=== PATIENT | male | born 1995 | race Caucasian/White ===

== ENCOUNTER 2020-11-18 22:15 | Observation (INO) | payer OTHER, SELFPAY ==
[~2020-11-18 22:15] MED LIST: Iopamidol 370 76% 100 ML VIAL ONE
[2020-11-18 22:46] LABS: Hemoglobin 16.4 g/dL (14.0-18.0); Mean Corpuscular HGB CONC 34.2 g/dL (32.0-36.0); Mean Corpuscular Hemoglobin 32.4 pg (27.0-31.0); Mean Corpuscular Volume 94.8 fL (78.0-98.0); Mean Platelet Volume 8.3 fL (7.4-10.4); Platelet Count 334 thou/uL (130-400); RBC Distribution Width 11.8 % (11.5-14.5); Red Blood Cell (RBC) Count 5.07 mill/uL (4.70-6.10); White Blood Cell (WBC) Count 24.1 thou/uL (4.8-10.8)
[2020-11-18 22:51] LABS: Bacteria/HPF None Seen HPF (None Seen); Bilirubin Negative (Negative); Blood, Urine 3+ (Negative); Clarity Clear (Clear); Glucose, Urine (Dipstick) Normal (Negative); Ketone, Urine 20 mg/dL (Negative); Leukocyte Negative Leu/uL (Negative); Mucous/LPF Rare LPF (<2+); Nitrite Negative (Negative); Protein, Urine (Dipstick) 10 mg/dL (Neg-Trace); RBC/HPF Greater than 50 HPF (0-3); Specific Gravity, Urine 1.021 (1.002-1.036); Squamous Epithelial None Seen HPF (0-3); Urobilinogen Normal mg/dL (Less than 2); WBC/HPF 0-3 HPF (0-3)
[2020-11-18 23:03] LABS: Band 7 % (5-11); Lymphocytes 15 % (21-51); MDiff Complete? YES; Monocytes 9 % (0-10); Neutrophil 69 % (42-75); Platelet Morphology Comment Appears Adequate; RBC Morphology Normal
[2020-11-18 23:06] LABS: ALT (SGPT) 62 U/L (8-55); AST (SGOT) 31 U/L (5-34); Albumin 4.6 g/dL (3.5-5.0); Alkaline Phosphatase 58 U/L (40-110); Anion Gap 20 mmol/L (10-20); BUN (Urea Nitrogen) 8 mg/dL (8.9-20.6); Bilirubin, Total 0.4 mg/dL (0.2-1.2); Calc. Creatinine Clearance 0 mL/min (70-130); Calcium 9.7 mg/dL (7.8-10.44); Carbon Dioxide 23 mmol/L (22-29); Chloride 102 mmol/L (98-107); Globulin 3.2 g/dL (2.4-3.5); Glucose 136 mg/dL (70-105); Potassium 4.1 mmol/L (3.5-5.1); Protein, Total 7.8 g/dL (6.0-8.3); Sodium 141 mmol/L (136-145)
[2020-11-18] MEDS ORDERED: Morphine 4 MG/ML VIAL ONE (23:19)
[2020-11-18] MEDS ORDERED: Ondansetron PF 4 MG/2 ML Vial ONE (23:19)
--- NOTE | 2020-11-19 00:01 | CT ---
CT abdomen and pelvis: 11/18/2020 COMPARISON: None HISTORY: Right flank pain TECHNIQUE: Axial CT imaging at 5 mm intervals from lung bases through pubic symphysis with IV contras t. Coronal and sagittal reformatted imaging obtained. FINDINGS: The visualized lung bases are unremarkable. No free intraperitoneal air or fluid. The liver, gallbladder, spleen, pancreas, adrenal glands, and left kidney appear unremarkable. There is a slightly delayed right nephrogram with mild right hydronephrosis and right hydroureter to the axial level of the pelvic inlet where there is a obstructing stone within the right ureter at the axi al level of the mid sacrum (axial image 73) measuring approximately 2-3 mm. Limited assessment of the bowel demonstrates no evidence for inflammatory change or obstruction. The appendix appears unremarkable. The vascular structures of the abdomen/pelvis appear patent. No abdominal or pelvic lymphadenopathy. No acute osseous abnormality. IMPRESSION: Obstructive uropathy on the right secondary to a 2-3 mm obstructing stone within the righ t ureter as detailed above.
[2020-11-19] MEDS ORDERED: Ketorolac Tromethamine 30 MG/ML VIAL ONE (00:20)
[2020-11-19 02:16] LABS: #Basophils 0.1 thou/uL (0.0-0.2); #Monocytes 0.8 thou/uL (0.11-0.59); #Neutrophils 19.6 thou/uL (1.40-6.50); %Basophils 0.3 % (0.0-1.0); %Eosinophils 0.1 % (0.0-10.0); %Lymphocytes 4.6 % (21.0-51.0); %Monocytes 3.9 % (0.0-10.0); %Neutrophils 91.2 % (42.0-75.0); Hemoglobin 14.7 g/dL (14.0-18.0); Mean Corpuscular HGB CONC 33.5 g/dL (32.0-36.0); Mean Corpuscular Hemoglobin 31.8 pg (27.0-31.0); Mean Corpuscular Volume 95.1 fL (78.0-98.0); Mean Platelet Volume 8.3 fL (7.4-10.4); Platelet Count 277 thou/uL (130-400); RBC Distribution Width 11.7 % (11.5-14.5); Red Blood Cell (RBC) Count 4.61 mill/uL (4.70-6.10); White Blood Cell (WBC) Count 21.5 thou/uL (4.8-10.8)
[2020-11-19] MEDS ORDERED: cefTRIAXone\\ROCEPHIN 2 GM VIAL ONE (02:37)
--- NOTE | 2020-11-19 03:31 | PDOC.HHP ---
Hospitalist HPI Right flank pain History of Present Illness: PCP: None The patient is a 25-year-old male with no significant past medical history that presents to the emergency department for the above complaint. The patient reports developing right flank pain that radiates to the right lower back and suprapubic region since yesterday. Describes the pain is intermittent, severe at times, described as sharp and stabbing, exacerbated relieved by nothing. Reports associated diarrhea. Denies any vomiting, hematochezia/melena. No recent travel or antibiotic usage. Denies dysuria and hematuria. Denies fever and chills. Denies any chest pain, heart palpitations or lightheadedness. Denies any shortness of breath, cough, hemoptysis or wheezing. ED Course: VITAL SIGNS TueNov 18, 2020 22:16 REGINA Sellers Julia BP: 144/88, Pulse: 65, Resp: 20, Temp: 97.5 (Oral), Pain: 9, O2 sat: 98 on (Room Air), Time: 11/18/2020 22:16. VITAL SIGNS TueNov 18, 2020 23:16 REGINA Mathis Melanie BP: 128/70, Pulse: 60, Resp: 23, Pain: 10, O2 sat: 96 on (Room Air), Time: 11/18/2020 23:16. VITAL SIGNS TueNov 19, 2020 00:27 Andrew Morton RN, [place], BP: 132/81, Pulse: 95, Resp: 16, Pain: 8, O2 sat: 96 on (Room Air), Time: 11/19/2020 00:27. VITAL SIGNS TueNov 19, 2020 01:05 Andrew Morton RN, [place], BP: 98/52, Resp: 16, Temp: 97.8 (Oral), O2 sat: 99 on (Room Air), Time: 11/19/2020 01:05. VITAL SIGNS TueNov 19, 2020 01:36 Andrew Morton RN, [place], BP: 101/43, Pulse: 120, Resp: 20, O2 sat: 99 on (Room Air), Time: 11/19/2020 01:36. VITAL SIGNS TueNov 19, 2020 02:15 Andrew Morton RN, [place], BP: 133/76, MAP: 95, Pulse: 112, O2 sat: 99 on (Room Air), Time: 11/19/2020 02:15. VITAL SIGNS TueNov 19, 2020 02:34 Andrew Morton RN, [facility], BP: 150/99, MAP: 116, Pulse: 107, Resp: 20, Temp: 98.0 (Oral), Pain: 0, O2 sat: 99 on (Room Air), Time: 11/19/2020 02:34 Medications: cefTRIAXone injection 2 g IV Piggy Back Given 02:43 11/19/2020 sodium chloride 0.9 % intravenous 1000 mL IV Fluid Infusion Given 01:52 11/19/2020 sodium chloride 0.9 % intravenous 1000 mL IV Fluid Infusion Given 00:26 11/19/19 21 ketorolac injection 15 mg IV Push Given 00:24 11/19/2020 ondansetron HCl intravenous 4 mg IV Push Given 23:32 11/18/2020 morphine injection 4 mg IV Push Given 23:31 11/18/2020 sodium chloride 0.9 % intravenous 1000 mL IV Fluid Infusion Given 23:31 11/18/2020 Allergies/Adverse Reactions: Allergy/AdvReac Type Severity Reaction Status Date / Time No Known Allergies Allergy Unverified 11/19/20 03:32 Home Medications: Medication Instructions Recorded Confirmed Type No Known 11/19/20 11/19/20 History Past History: PMHx: None PSHx: None FHx: Non contributory to this case. Social: No history tobacco, heavy alcohol or illicit drug usage, he is independent. Hospitalist HPI ROS All other systems reviewed; all pertinent +/- noted in HPI/Subj Hospitalist Exam General Appearance: NAD, awake alert. negative: ill appearing General - other findings: Appears uncomfortable Eye: anicteric sclera ENT: normocephalic atraumatic Heart: RRR, no murmur, no gallops, no rubs, normal peripheral pulses Respiratory: CTAB, no wheezes, no rales, no ronchi, normal chest expansion, no tachypnea Gastrointestinal: soft, non-distended, normal bowel sounds, no guarding, no rigidity Gastrointestinal - other findings: RCVAT Extremities: no cyanosis, no edema Skin: no rashes Neurological: no focal deficits Musculoskeletal: normal tone, normal strength Psychiatric: normal affect, A&O x 3 Hospitalist Results Result Diagrams: 11/19/20 01:57 11/18/20 22:37 Lab results: Laboratory Last Values WBC 21.5 thou/uL (4.8-10.8) H 11/19/20 01:57 RBC 4.61 mill/uL (4.70-6.10) L 11/19/20 01:57 Hgb 14.7 g/dL (14.0-18.0) 11/19/20 01:57 Hct 43.9 % (42.0-52.0) 11/19/20 01:57 MCV 95.1 fL (78.0-98.0) 11/19/20 01:57 MCH 31.8 pg (27.0-31.0) H 11/19/20 01:57 MCHC 33.5 g/dL (32.0-36.0) 11/19/20 01:57 RDW 11.7 % (11.5-14.5) 11/19/20 01:57 Plt Count 277 thou/uL (130-400) 11/19/20 01:57 MPV 8.3 fL (7.4-10.4) 11/19/20 01:57 Neutrophils % 91.2 % (42.0-75.0) H 11/19/20 01:57 Neutrophils % (Manual) 69 % (42-75) 11/18/20 22:37 Band Neuts % (Manual) 7 % (5-11) 11/18/20 22:37 Lymphocytes % 4.6 % (21.0-51.0) L 11/19/20 01:57 Lymphocytes % (Manual) 15 % (21-51) L 11/18/20 22:37 Monocytes % 3.9 % (0.0-10.0) 11/19/20 01:57 Monocytes % (Manual) 9 % (0-10) 11/18/20 22:37 Eosinophils % 0.1 % (0.0-10.0) 11/19/20 01:57 Basophils % 0.3 % (0.0-1.0) 11/19/20 01:57 Neutrophils # 19.6 thou/uL (1.40-6.50) H 11/19/20 01:57 Lymphocytes # 1.0 thou/uL (1.20-3.40) L 11/19/20 01:57 Monocytes # 0.8 thou/uL (0.11-0.59) H 11/19/20 01:57 Eosinophils # 0.0 thou/uL (0.0-0.7) 11/19/20 01:57 Basophils # 0.1 thou/uL (0.0-0.2) 11/19/20 01:57 Plt Morphology Comment Appears Adequate 11/18/20 22:37 RBC Morph Comment Normal 11/18/20 22:37 Sodium 141 mmol/L (136-145) 11/18/20 22:37 Potassium 4.1 mmol/L (3.5-5.1) 11/18/20 22:37 Chloride 102 mmol/L (98-107) 11/18/20 22:37 Carbon Dioxide 23 mmol/L (22-29) 11/18/20 22:37 Anion Gap 20 mmol/L (10-20) 11/18/20 22:37 BUN 8 mg/dL (8.9-20.6) L 11/18/20 22:37 Creatinine 1.08 mg/dL (0.7-1.3) 11/18/20 22:37 Estimated GFR (MDRD) 84 11/18/20 22:37 Glucose 136 mg/dL (70-105) H 11/18/20 22:37 Lactic Acid 1.5 mmol/L (0.5-2.2) 11/19/20 01:57 Calcium 9.7 mg/dL (7.8-10.44) 11/18/20 22:37 Total Bilirubin 0.4 mg/dL (0.2-1.2) 11/18/20 22:37 AST 31 U/L (5-34) 11/18/20 22:37 ALT 62 U/L (8-55) H 11/18/20 22:37 Alkaline Phosphatase 58 U/L (40-110) 11/18/20 22:37 Serum Total Protein 7.8 g/dL (6.0-8.3) 11/18/20 22:37 Albumin 4.6 g/dL (3.5-5.0) 11/18/20 22:37 Globulin 3.2 g/dL (2.4-3.5) 11/18/20 22:37 Albumin/Globulin Ratio 1.4 g/dL (1.2-2.2) 11/18/20 22:37 Lipase 10 U/L (8-78) 11/18/20 22:37 Urine Color Yellow (Yellow) 11/18/20 10:28 Urine Clarity Clear (Clear) 11/18/20 10:28 Urine pH 6.0 (5.0-9.0) 11/18/20 10:28 Ur Specific Grethel 1.021 (1.002-1.036) 11/18/20 10:28 Urine Protein 10 mg/dL (Neg-Trace) 11/18/20 10:28 Urine Glucose (UA) Normal mg/dL (Negative) 11/18/20 10:28 Urine Ketones 20 mg/dL (Negative) A 11/18/20 10:28 Urine Blood 3+ (Negative) A 11/18/20 10:28 Urine Nitrite Negative (Negative) 11/18/20 10:28 Urine Bilirubin Negative (Negative) 11/18/20 10:28 Urine Urobilinogen Normal mg/dL (Less than 2) 11/18/20 10:28 Ur Leukocyte Esterase Negative Alexi/uL (Negative) 11/18/20 10:28 Urine RBC Greater than 50 HPF (0-3) A 11/18/20 10:28 Urine WBC 0-3 HPF (0-3) 11/18/20 10:28 Ur Squamous Epith Cells None Seen HPF (0-3) 11/18/20 10:28 Urine Bacteria None Seen HPF (None Seen) 11/18/20 10:28 Urine Mucus Rare LPF (<2+) 11/18/20 10:28 CT scan - abdomen Status: report reviewed by me Additional Comments: there is a obstructing stone within the right ureter at the axial level of the mid sacrum (axial image 73) measuring approximately 2-3 mm. IMPRESSION: Obstructive uropathy on the right secondary to a 2-3 mm obstructing stone within the right ureter as detailed above. Hospitalist H&P A/P (1) Right ureteral calculus Code(s): N20.1 - CALCULUS OF URETER Status: Acute (2) Leukocytosis Code(s): D72.829 - ELEVATED WHITE BLOOD CELL COUNT, UNSPECIFIED Status: Acute (3) Hematuria Code(s): R31.9 - HEMATURIA, UNSPECIFIED Status: Acute Plan: Patient with no significant past medical history presents for right flank pain and diarrhea. Imaging revealed 2-3 mm obstructing, right ureteral stone without hydronephrosis. Labs showed leukocytosis, without pyuria. Lactic acid 1.5. Patient tachycardic after 3 L normal saline. #Right ureteral calculus Continue IV fluid, analgesia and antiemetics. Continue Rocephin. Blood cultures pending. Start Flomax. If no improvement in symptoms, consider urology consult. #Leukocytosis Presented WBCs 24.1. After 3L NS, WBCs 21.5 Mildly tachycardic, low 100s UA + blood/RBCs, no pyuria, LA 1.5. Continue Rocephin. Recheck levels in a.m. SCDs for DVT prophylaxis. Pepcid for GI prophylaxis. CODE STATUS is full code. Discussed the case with attending physician, Dr. Walker, who agrees with plan of care.
[2020-11-19] MEDS ORDERED: Acetaminophen 325 MG TAB PO PRN (03:37)
[2020-11-19] MEDS ORDERED: Ondansetron PF 4 MG/2 ML Vial IVP PRN (03:39)
[2020-11-19] MEDS ORDERED: Morphine 2 MG/ML VIAL SLOW IVP PRN ×2 (03:39→03:43)
[2020-11-19] MEDS ORDERED: Ondansetron ODT 4 MG TAB PO PRN (03:39)
[2020-11-19] MEDS ORDERED: Tamsulosin HCl 0.4 MG CAP PO SCH (04:00)
[2020-11-19] MEDS ORDERED: Morphine 4 MG/ML VIAL ONE (04:11)
[2020-11-19 05:44] VITALS: BMI 29.9
[2020-11-19] MEDS: Ketorolac Tromethamine 30 MG/ML VIAL IVP SCH ×4 (06:36→23:48)
[2020-11-19] MEDS: Sodium Chloride 0.9% 1,000 ML IV SCH ×3 (06:39→21:08)
[2020-11-19] MEDS: Famotidine 20 MG TAB PO SCH ×2 (08:07→21:13)
[2020-11-19] MEDS ORDERED: Loratadine 10 MG TAB PO PRN (09:03)
[2020-11-19] MEDS ORDERED: GUAIFENESIN SF SOLN 200 MG/10 ML UDCUP PO PRN (09:03)
[2020-11-19] MEDS ORDERED: Loperamide HCl 2 MG CAP PO PRN (09:03)
[2020-11-19] MEDS ORDERED: Senokot S 8.6-50 MG TAB PO PRN (09:03)
[2020-11-19] MEDS ORDERED: Sodium Chloride 0.65% Nasal 44 ML BOT EA NARE PRN (09:03)
[2020-11-19] MEDS ORDERED: Bisacodyl 5 MG TAB PO PRN (09:03)
[2020-11-19] MEDS ORDERED: Zolpidem Tartrate 5 MG TAB PO PRN (09:03)
[2020-11-19] MEDS ORDERED: Cepastat Lozenges 1 LOZ PO PRN (09:03)
[2020-11-19] MEDS ORDERED: hydrALAZINE 20 MG/ML VIAL SLOW IVP PRN (09:03)
[2020-11-19 12:25] LABS: SARS-CoV-2 PCR by NAA Not Detected (NotDetected)
--- NOTE | 2020-11-19 13:48 | PDOC.HOSPP ---
- Subjective Encounter Date: 11/19/20 Encounter Time: 10:15 Subjective: Patient seen and examined bedside today, no overnight event, patient still has right-sided flank pain, - Objective Vital Signs & Weight: Vital Signs (12 hours) Temp Pulse Resp BP Pulse Ox 11/19/20 09:00 98.0 F 77 16 113/58 L 96 11/19/20 05:05 98.8 F 98 10 L 126/79 98 Weight Weight 215 lb 1.6 oz I&O: 11/18/20 11/19/20 11/20/20 06:59 06:59 06:59 Intake Total 15 Output Total 375 Balance -360 Result Diagrams: 11/19/20 01:57 11/18/20 22:37 Radiology Reviewed by me: Yes EKG Reviewed by me: Yes Hospitalist ROS - Review of Systems ENT: denies: ear pain, ear discharge, nose pain, nose discharge, nose con gestion, mouth pain, mouth swelling, throat pain, throat swelling, other Respiratory: denies: cough, dry, shortness of breath, hemoptysis, SOB with excertion, pleuritic pain, sputum, wheezing, other Cardiovascular: denies: chest pain, palpitations, orthopnea, paroxysmal noc. dyspnea, edema, light headedness, other Gastrointestinal: denies: nausea, vomiting, abdominal pain, diarrhea, constipation, melena, hematochezia, other Genitourinary: denies: dysuria, frequency, incontinence, hematuria, retention, other Musculoskeletal: denies: neck pain, shoulder pain, arm pain, back pain, hand pain, leg pain, foot pain, other - Medication Medications: Active Medications Generic Name Dose Route Start Last Admin Trade Name Freq PRN Reason Stop Dose Admin Famotidine 20 mg 11/19/20 09:00 11/19/20 08:07 Famotidine 20 Mg Tab PO 20 mg BID VIRAJ Administration Sodium Chloride 1,000 mls @ 120 mls/hr 11/19/20 03:45 11/19/20 11:53 Normal Saline 0.9% IV 1,000 mls .[id number] VIRAJ Administration Ketorolac Tromethamine 15 mg 11/19/20 06:00 11/19/20 11:53 Ketorolac Tromethamine 30 Mg/Ml Vial IVP 11/24/20 06:01 15 mg Q6HR VIRAJ Administration Hospitalist Exam Vitals: Vital Signs (12 hours) Temp Pulse Resp BP Pulse Ox 11/19/20 09:00 98.0 F 77 16 113/58 L 96 11/19/20 05:05 98.8 F 98 10 L 126/79 98 Weight Weight 215 lb 1.6 oz General Appearance: NAD, awake alert Eye: PERRL, anicteric sclera ENT: normocephalic atraumatic, no oropharyngeal lesions Neck: supple, symmetric, no JVD, no thyromegaly Heart: RRR, no murmur, no gallops, no rubs Respiratory: CTAB, no wheezes, no rales, no ronchi Gastrointestinal: soft, non-tender, non-distended, normal bowel sounds Gastrointestinal - other findings: Right-sided flank pain noted Extremities: no cyanosis, no clubbing, no edema Skin: normal turgor, no lesions Neurological: no focal deficits Musculoskeletal: normal tone, normal strength Psychiatric: normal affect, normal behavior Hosp A/P (1) Obesity (BMI 30.0-34.9) Code(s): E66.9 - OBESITY, UNSPECIFIED Status: Acute (2) Obstructive uropathy Code(s): N13.9 - OBSTRUCTIVE AND REFLUX UROPATHY, UNSPECIFIED Status: Acute (3) Hematuria Code(s): R31.9 - HEMATURIA, UNSPECIFIED Status: Acute (4) Leukocytosis Code(s): D72.829 - ELEVATED WHITE BLOOD CELL COUNT, UNSPECIFIED Status: Acute (5) Right ureteral calculus Code(s): N20.1 - CALCULUS OF URETER Status: Acute - Plan old records reviewed/req, continue antibiotics Continue IV fluid If urology not planning to do any intervention then will start diet Discontinue telemetry Transfer to medical We will repeat labs tomorrow We will monitor 24 hours Pain control
[2020-11-19] MEDS: HYDROcodone/Acetaminophen 5/325 mg Tablet PO PRN ×2 (16:41→21:14)
[2020-11-19] MEDS ORDERED: FLU VACC QS2020-21(6MOS UP)/PF 60 MCG/0.5 ML SYRINGE IM ONE (21:00)
--- NOTE | 2020-11-19 22:41 | CON ---
DATE OF CONSULTATION: REQUESTING PHYSICIAN: Uday Walker MD REASON FOR CONSULTATION: Right ureteral stone. HISTORY OF PRESENT ILLNESS: Mr. Gill is a 25-year-old male with no past urologic history, who presented to the emergency department with a 2-day history of left-sided flank pain associated with nausea and radiating to his right lower quadrant. The patient had a CT scan of the abdomen and pelvis performed, which demonstrated a 2-3 mm calculus within the right distal ureter and mild right hydroureteronephrosis. The patient was found to have a leukocytosis of 24 and he was tachycardic. His urine was consistent with a stone with red blood cells bacteria. Cultures were performed and the patient was admitted. Urology was consulted for further evaluation. Currently, the patient's pain is 0/10. He states that it will get up to 1-2/10 and has responded very well to Toradol. He denies any nausea and no fever. He has never had stones before. He is not diabetic. He has no new complaints. REVIEW OF SYSTEMS: Full 12-point review of systems was performed and negative other than that mentioned in HPI. PAST MEDICAL HISTORY: None. PAST SURGICAL HISTORY: None. FAMILY HISTORY: Noncontributory. SOCIAL HISTORY: No alcohol, tobacco, or illicit drugs. PHYSICAL EXAMINATION: VITAL SIGNS: Temperature is 98, blood pressure 128/70, pulse 60, oxygen saturation 98% on room air. GENERAL: He is awake and alert, in no apparent distress. HEENT: Normocephalic, atraumatic. NECK: Supple. No masses or lymphadenopathy. CARDIOVASCULAR: Regular rate and rhythm. PULMONARY: Breathing unlabored. ABDOMEN: Soft, nontender/nondistended. No masses or organomegaly. No suprapubic tenderness to palpation. No CVA tenderness. EXTREMITIES: Warm, well perfused. No edema. NEUROLOGIC: No focal deficits. RADIOLOGY DATA: CT of the abdomen and pelvis as stated above. These films were reviewed and agreed with radiologist's interpretation. LABORATORY DATA: White blood cell count 21.5 down from 24.1, hemoglobin 14.7, hematocrit 43.9, platelets 277. Sodium 141, potassium 4.1, chloride 102, bicarb 23, BUN 8, creatinine 1.08. Urine; 3+ blood, greater than 50 red blood cells per high-power field, 0-3 white blood cells per high-power field, no bacteria seen, nitrite negative. ASSESSMENT: 25-year-old male with a 2 to 3 mm minimally obstructing right ureteral calculus. PLAN: I reviewed the natural history and clinical implications of ureteral lithiasis with the patient in detail and discussed his approximate 90% to 95% chance of spontaneous passage of a stone this size. The patient is no longer tachycardic. His white blood cell count is trending down. He has very minimal pain at this time. He is not requiring a large amount of narcotics. He has no nausea and is afebrile. I discussed options with the patient. Recommended trial of passage. He agrees to this. From the urologic standpoint, he can be discharged home when otherwise cleared medically. He can follow up with Urology in 2 weeks. He should be discharged home with pain medication. He has responded well to Toradol and oral Toradol should be considered. He also should leave with the Flomax as well as antiemetics. Job ID: [id number]
[2020-11-20] MEDS ORDERED: cefTRIAXone\\ROCEPHIN 1 GM in Sodium Chloride 0.9% 100 ML IVPB SCH (02:30)
[2020-11-20] MEDS: Ketorolac Tromethamine 30 MG/ML VIAL IVP SCH ×2 (05:34→15:16)
[2020-11-20] MEDS: Sodium Chloride 0.9% 1,000 ML IV SCH ×2 (05:34→15:16)
[2020-11-20 06:19] LABS: #Basophils 0.1 thou/uL (0.0-0.2); #Eosinphils 0.3 thou/uL (0.0-0.7); #Lymphocytes 3.8 thou/uL (1.20-3.40); #Monocytes 0.8 thou/uL (0.11-0.59); #Neutrophils 4.5 thou/uL (1.40-6.50); %Basophils 1.1 % (0.0-1.0); %Eosinophils 2.7 % (0.0-10.0); %Lymphocytes 40.3 % (21.0-51.0); %Monocytes 8.2 % (0.0-10.0); %Neutrophils 47.8 % (42.0-75.0); Hemoglobin 13.1 g/dL (14.0-18.0); Mean Corpuscular Hemoglobin 31.7 pg (27.0-31.0); Mean Platelet Volume 8.3 fL (7.4-10.4); Platelet Count 243 thou/uL (130-400); RBC Distribution Width 11.8 % (11.5-14.5); Red Blood Cell (RBC) Count 4.14 mill/uL (4.70-6.10); White Blood Cell (WBC) Count 9.5 thou/uL (4.8-10.8)
[2020-11-20 06:37] LABS: Anion Gap 12 mmol/L (10-20); BUN (Urea Nitrogen) 9 mg/dL (8.9-20.6); Calc. Creatinine Clearance 181 mL/min (70-130); Calcium 8.2 mg/dL (7.8-10.44); Carbon Dioxide 26 mmol/L (22-29); Chloride 108 mmol/L (98-107); Glucose 87 mg/dL (70-105); Potassium 3.9 mmol/L (3.5-5.1); Sodium 142 mmol/L (136-145)
[2020-11-20] MEDS: Famotidine 20 MG TAB PO SCH (08:06)
[2020-11-20] MEDS ORDERED: Tamsulosin HCl 0.4 MG CAP PO SCH (09:00)
[2020-11-20] MEDS: HYDROcodone/Acetaminophen 5/325 mg Tablet PO PRN (09:18)
--- NOTE | 2020-11-20 10:56 | PDOC.DS.DS ---
Provider Date of Admission: 11/19/20 05:15 Date of Discharge: 11/20/20 Admitting Provider: Uday Walker MD Consultations: Urology Primary Care Physician: NO PCP PROVIDER Course Hospital Course: The patient is a 25-year-old male with no significant past medical history that presents to the emergency department for the above complaint. The patient reports developing right flank pain that radiates to the right lower back and suprapubic region since yesterday. Describes the pain is intermittent, severe at times, described as sharp and stabbing, exacerbated relieved by nothing. Reports associated diarrhea. Denies any vomiting, hematochezia/melena. No recent travel or antibiotic usage. Denies dysuria and hematuria. Denies fever and chills. Denies any chest pain, heart palpitations or lightheadedness. Denies any shortness of breath, cough, hemoptysis or wheezing. Patient had leukocytosis and flank pain and patient had 3 to 4 mm ureteral stone with mild hydronephrosis, patient was having obstructive uropathy, he did not have any fever, we kept in hospital, we hydrate him with IV fluid, we control his pain with the pain medication, his pain was appropriately controlled, next day his leukocytosis resolved, his hematuria also cleared, urology evaluated this patient and recommended conservative therapy at this point, we have prescribed Toradol and Flomax and encouraged about oral hydration, patient will follow up with urology in 2 weeks, In the hospital he remained hemodynamic stable, he is comfortable to go home, urology cleared him for discharge as well. Patient seen and examined bedside today, all new medication prescription sent to his pharmacy Resuscitation Status: 11/19/20 03:37 Resuscitation Status Routine Co-Sign Provider: Resuscitation Status: FULL: Full Resuscitation Discussed with: patient Lab Results: 11/20/20 06:02 11/20/20 06:02 Abnormal Lab Results - Last 48 hrs 11/18/20 10:28: Urine Ketones 20 A, Urine Blood 3+ A, Urine RBC Greater than 50 A 11/18/20 22:37: WBC 24.1 H, MCH 32.4 H, Lymphocytes % (Manual) 15 L 11/18/20 22:37: BUN 8 L, ALT 62 H 11/19/20 01:57: WBC 21.5 H, RBC 4.61 L, MCH 31.8 H, Neutrophils % 91.2 H, Lymphocytes % 4.6 L, Neutrophils # 19.6 H, Lymphocytes # 1.0 L, Monocytes # 0.8 H 11/20/20 06:02: Chloride 108 H 11/20/20 06:02: RBC 4.14 L, Hgb 13.1 L, Hct 39.8 L, MCH 31.7 H, Basophils % 1.1 H, Lymphocytes # 3.8 H, Monocytes # 0.8 H Vitals: Vital Signs (12 hours) Temp Pulse Resp BP BP Pulse Ox 11/20/20 07:53 98.2 F 66 20 126/84 91 L 11/20/20 05:01 97.6 F 61 20 137/86 95 11/20/20 00:55 97.7 F 84 20 126/84 94 L Weight Weight 215 lb Physical Exam: The patient was seen and examined on the day of discharge. General Appearance: NAD, awake alert Eye: PERRL, anicteric sclera ENT: normocephalic atraumatic, no oropharyngeal lesions Neck: supple, symmetric, no JVD, no thyromegaly Respiratory: CTAB, no wheezes, no rales, no ronchi Cardiovascular: RRR, no murmur, no gallops, no rubs Gastrointestinal: soft, non-tender, non-distended, normal bowel sounds Extremities: no cyanosis, no clubbing, no edema Skin: normal turgor, no lesions Neurological: no focal deficits Musculoskeletal: normal tone, normal strength, no muscle wasting PSYCH: normal affect, normal behavior, A&O x 3 Problem (1) Right ureteral calculus Code(s): N20.1 - CALCULUS OF URETER Status: Acute (2) Obstructive uropathy Code(s): N13.9 - OBSTRUCTIVE AND REFLUX UROPATHY, UNSPECIFIED Status: Acute (3) Hematuria Code(s): R31.9 - HEMATURIA, UNSPECIFIED Status: Resolved (4) Obesity (BMI 30.0-34.9) Code(s): E66.9 - OBESITY, UNSPECIFIED Status: Chronic (5) Leukocytosis Code(s): D72.829 - ELEVATED WHITE BLOOD CELL COUNT, UNSPECIFIED Status: Resolved Plan Prescriptions: Ketorolac Tromethamine [Toradol] 10 mg PO Q6HR PRN #30 tab PRN Reason: Pain Ciprofloxacin [Cipro] 500 mg PO Q12HR #14 tab Tamsulosin HCl [Flomax] 0.4 mg PO DAILY #30 cap Home Medications: Medication Instructions Recorded Confirmed Type Ciprofloxacin [Cipro] 500 mg PO Q12HR #14 tab 11/20/20 Rx Ketorolac Tromethamine [Toradol] 10 mg PO Q6HR PRN #30 tab 11/20/20 Rx Tamsulosin HCl [Flomax] 0.4 mg PO DAILY #30 cap 11/20/20 Rx Allergies: No Known Allergies Allergy (Verified 11/19/20 05:43) Activity:: Activity as Tolerated Nourishment:: Regular Diet Therapies:: Not Applicable Equipment/Supplies:: Not Applicable IV Therapy:: Not Applicable Referrals: PROVIDER,NO PCP [Primary Care Provider] - Mehran Lew MD [Active] - 14 Days Disposition: HOME Quality CORE MEASURES:: N/A
[2020-11-20 15:14] VITALS: BP 139/90; TEMP 97.6
== END 2020-11-20 13:30 | disposition home or self-care (01) ==
LOC: ERS 22:15 → 2NO 11-19 05:15 → T4-B 11-19 19:30
PROVIDERS: ADMIT Internal Medicine; ATTEND Internal Medicine
DX: N13.2 Hydronephrosis with renal and ureteral calculous obstruction (principal); D72.829 Elevated white blood cell count, unspecified; E66.9 Obesity, unspecified; Z68.30 Body mass index [BMI] 30.0-30.9, adult; Z20.822 Contact with and (suspected) exposure to COVID-19
CPT/HCPCS: 36415; 74177; 80048; 80053; 81003; 81015; 83605; 83690; 85025; 87040; 87635; 90471; 90662; 96365; 96375; 96376; G0008; G0378; J0696; J1885; J2270; J2405; J3490; Q9967; U0003; U0005